=== PATIENT | female | born 1990 | race Caucasian/White ===

== ENCOUNTER 2018-03-21 08:14 | Observation (INO) | payer OTHER ==
[2018-03-21 08:47] VITALS: BMI 26.5
--- NOTE | 2018-03-21 08:55 | PDOC ---
History of Present Illness - General Chief Complaint: Psychiatric Stated Complaint: Depression Time Seen by Provider: 03/21/18 08:51 - History of Present Illness Initial Comments: 03/21/18 08:53 27 yo F with h/o depression who p/w suicidal ideations. Patient Lithuanian speaking with family members at bedside. Patient sisters states that patient called her yesterday evening on the phone endorsing SI, but did not have a plan at that time and requested that she pick her up from the bus stop yesterday (). Patient sister states that she has not slept in three days, and has had history of similar symptoms in past. Patient sister states that she has not been verbal since picking her up, has refused to sit down since picking her up, and denies that patient has attempted to harm herself. Patient denies assault, sexual assault. Patient family states that patient does not wish to be involved with patient at this time. Patient no longer on antidepressant medications x 2 month. Patient believes that she no longer needed medications. Patient denies STEWARD, palpitations, cough, wheezing, N/V, F,C, CP, SOB, urinary complaints, abdominal pain, vaginal bleeding, diarrhea, constipation, hematuria , BPR, lightheadedness, weakness, sensory changes. PMHx: as noted above ROS: as noted SHx: Denies Etoh, IVDA, tobacco use Allergies: NKDA Past History - Past Medical History Allergies/Adverse Reactions: Allergies Allergy/AdvReac Type Severity Reaction Status Date / Time No Known Allergies Allergy Verified 03/21/18 08:35 COPD: No Psychiatric Problems: Yes (depressions) - Immunization History Immunization Up to Date: Yes - Suicide/Smoking/Psychosocial Hx Smoking History: Never smoked Hx Alcohol Use: No Drug/Substance Use Hx: No Review of Systems - Review of Systems Comments:: 03/21/18 08:53 GENERAL/CONSTITUTIONAL: No fever or chills. No weakness. HEAD, EYES, EARS, NOSE AND THROAT: No change in vision. No ear pain or discharge. No sore throat. CARDIOVASCULAR: No chest pain or shortness of breath RESPIRATORY: No cough, wheezing, or hemoptysis. GASTROINTESTINAL: No nausea, vomiting, diarrhea or constipation. GENITOURINARY: No dysuria, frequency, or change in urination. MUSCULOSKELETAL: No joint or muscle swelling or pain. No neck or back pain. SKIN: No rash NEUROLOGIC: No headache, vertigo, loss of consciousness, or change in strength/ sensation. ENDOCRINE: No increased thirst. No abnormal weight change HEMATOLOGIC/LYMPHATIC: No anemia, easy bleeding, or history of blood clots. ALLERGIC/IMMUNOLOGIC: No hives or skin allergy. *Physical Exam - Vital Signs Last Vital Signs Temp Pulse Resp BP Pulse Ox 97.9 F 82 18 117/65 98 03/21/18 08:35 03/21/18 08:35 03/21/18 08:35 03/21/18 08:35 03/21/18 08:35 - Physical Exam Comments: 03/21/18 08:54 GENERAL: Awake, alert, and fully oriented, in no acute distress HEAD: No signs of trauma, normocephalic, atraumatic EYES: PERRLA, EOMI, sclera anicteric, conjunctiva clear ENT: Auricles normal inspection, hearing grossly normal, nares patent, oropharynx clear without exudates. Moist mucosa NECK: Normal ROM, supple, no lymphadenopathy, JVD, or masses LUNGS: No distress, speaks full sentences, clear to auscultation bilaterally HEART: Regular rate and rhythm, normal S1 and S2, no murmurs, rubs or gallops, peripheral pulses normal and equal bilaterally. ABDOMEN: Soft, nontender, normoactive bowel sounds. No guarding, no rebound. No masses EXTREMITIES : Normal inspection, Normal range of motion, no edema. No clubbing or cyanosis. NEUROLOGICAL: Cranial nerves II through XII grossly intact. Normal speech, normal gait, no focal sensorimotor deficits PSYCH: Patient affect blunt, congruent with mood. Poor eye contact. Speech soft , well groomed, good hygeine. SKIN: Warm, Dry, normal turgor, no rashes or lesions noted Moderate Sedation - Procedure Monitoring Vital Signs: Procedure Monitoring Vital Signs Temperature 97.9 F 03/21/18 08:35 Pulse Rate 82 03/21/18 08:35 Respiratory Rate 18 03/21/18 08:35 Blood Pressure 117/65 03/21/18 08:35 O2 Sat by Pulse Oximetry (%) 98 03/21/18 08:35 ED Treatment Course - LABORATORY CBC & Chemistry Diagram: 03/21/18 09:45 03/21/18 09:45 Medical Decision Making - Medical Decision Making 03/21/18 09:51 27 yo F with h/o depression who p/w suicidal ideations. Vitals wnl, AF, A&Ox3. Patient affect blunt, congruent with mood. Poor eye contact. Speech soft. Patient with likely acute psychosis. Will attempt to medically clear and admit to [facility]. Ed Course: CBC,CMP, Etoh, APAP, Salicylate, EKG Patient endorsed to Dr. Durham by Dr. Rowland 03/21/18 11:11 CBC,CMP, TSH: Unremarkable BHCG: Neg APAP, Etoh, Salicylate: Neg 03/21/18 15:29 EKG: NSR with absent HAFSA, STD. Normal interval duration. Absent Q waves. Nml R wave progression. 03/21/18 15:29 Arranging for patient to be transferred to [facility] Patient pending bed at [facility]. Pending Social work consult Plan to admit for prolonged med/obs hold. Cannot d/c patient d/t current SI. Patient endorsed to Dr. Serrato. Admit med/obs. *DC/Admit/Observation/Transfer Diagnosis at time of Disposition: Acute psychosis, Suicidal ideation - Discharge Dispostion Decision to Admit order: Yes - Referrals - Patient Instructions Additional Instructions: Please return to the emergency department with any new or worsening symptoms or concerns. Please follow up with your primary care physician within 72 hours. - Post Discharge Activity
--- NOTE | 2018-03-21 09:19 | PDOC ---
Attending Attestation - Medical Decision Making 03/21/18 15:53 Call placed to [facility] ([facility]) @ 12:41 pm Patient documentation Faxed over and received at 3:46pm. As per transfer sales representative sales manager, documents have been forwarded to the physician who will go over them. we should receive a call back in several hours. Documentation prepared by Lety Dubon, acting as biomedical analytical scientist for Teetee Rowland MD. <Lety Dubon - Last Filed: 03/21/18 15:53> - Resident Resident Name: EdisonNareshLazaro - ED Attending Attestation I have performed the following: I have examined & evaluated the patient, The case was reviewed & discussed with the resident, I agree w/resident's findings & plan, Exceptions are as noted - HPI HPI: 03/21/18 09:18 27 yo F with h/o depression, here with suicidal ideation. pt providing very little history as is despondent, refusing to answer questions only in yes or no format, withdrawn and paranoid. sister and brother provide additional history states she has been in a relationship with an older gentlemen who is reportedly in a " cult" jehovas witness or some other amish, and they had an argument because she went to his anabaptism and outwardly said she disagreed with the amish. he told her she would have to be punished, and she is a bad person. pt denies physical violence, but refuses to answer when asked if she has been asked to perform acts she did not want to. per sister, pt has been standing for hours and hours, and hasn't slept in 3 days. sister recieved day prior from pt that she was feeling suicidal, and then she went to pick her up at a bus stop yesterday evening. since that time pt has been refusing to speak or sit down, wont eat. they speak regularily on the telephone, but she has not been able to see her prior to this because the wouldn't allow it. 03/21/18 09:41 - Physicial Exam PE: 03/21/18 09:57 awake, alert but poor eye contact. lungs clear bilaterally heart rrr nomrg abd soft ntnd. ext wwp no edema. no tenderness. psych flattened,and depressed affect. paranoid, poor eye contact. positive SI. quiet voice, answering only yes and no. - Medical Decision Making 03/21/18 10:07 27 yo F with h/o depression here with suicidal ideation, difficult domestic situation. pt with sxs of severe ptsd or psychosis. will undergoe medical clearance. [facility] requiring admission for psychosis, depression with suicidality. d/w dr decker, will come to ED for evaluation. 03/21/18 11:57 pt seen and evaluated by DR Decker, feels will benefit from inpatient treatment. 2PC was signed. working with social work to find a bed. 03/21/18 13:41 pt is medically clear for psychiatric admission. 03/21/18 18:07 all material faxed to [facility] for possible admission. no idea if beds or not. d/w [facility] no bed currently, told to call tomorrow. <Teetee Rowland - Last Filed: 03/21/18 18:09>
[2018-03-21 10:15] LABS: BASO % 0.3 % (0-2.0); EOS % 0.1 % (0-4.5); HEMATOCRIT 38.8 % (32.4-45.2); HEMOGLOBIN 13.5 GM/dL (10.7-15.3); LYMPH % 16.9 % (8-40); MCH 31.1 pg (25.7-33.7); MCHC 34.7 g/dl (32.0-36.0); MEAN CELL VOLUME 89.6 fl (80-96); MEAN PLT VOLUME 9.2 fl (7.5-11.1); MONO % 7.8 % (3.8-10.2); NEUT % 74.9 % (42.8-82.8); PLATELET COUNT 206 K/MM3 (134-434); RBC 4.33 M/mm3 (3.60-5.2); RDW 14.4 % (11.6-15.6); WHITE BLOOD COUNT 7.9 K/mm3 (4.0-10.0)
[2018-03-21 10:35] LABS: ALBUMIN 4.8 g/dl (3.4-5.0); ALK PHOS 68 U/L (45-117); ANION GAP 11 MMOL/L (8-16); BILIRUBIN,TOTAL 1.7 mg/dL (0.2-1); BLOOD UREA NITROGEN 18 mg/dL (7-18); CALCIUM 9.2 mg/dL (8.5-10.1); CHLORIDE 106 mmol/L (98-107); CO2 23 mmol/L (21-32); CREATININE 0.7 mg/dL (0.55-1.3); GLUCOSE,RANDOM 104 mg/dL (74-106); POTASSIUM 3.6 mmol/L (3.5-5.1); SGOT/AST 19 U/L (15-37); SGPT/ALT 14 U/L (13-61); SODIUM 141 mmol/L (136-145); TOT PROT 8.6 g/dl (6.4-8.2)
--- NOTE | 2018-03-21 11:31 | CON.PSY ---
Psychiatry Consult Chief Complaint: 27 year old female brought to Er by Sister for severe depression and catatonic sate.She quit her job and been standing for 3 days and displaying bizarre behaviour. history of depression and stop taking her meds. Very poor Historian. Symptoms: reports: Depressed Mood, Suicidality, Self destructive thoughts, Disorganized/Disruptive Thoughts - Previous Psychiatric Treatment Outpatient: Less than 6 mos ago Inpatient: None - Reason for Previous Treatment Reason for Previous Treatment: Major Depression, Psychotic Episode - Allergies Allergies: Allergies Allergy/AdvReac Type Severity Reaction Status Date / Time No Known Allergies Allergy Verified 03/21/18 08:35 - Current Living Status Usual Living Arrangement: Alone - Current Mental Status Evaluation Appearance: Disheveled Attitude: Suspicious - Affect Appropriateness: Not Appropriate - Mood Mood: Depressed - Speech/Language Expressive: Delayed - Psychomotor Activity Psychomotor Activity: Slowed - Thought Process Thought Process: Circumstantial - Thought Content Hallucinations: Absent Delusions: Absent - Self Perception Self Perception: Depersonalization - Cognition Attention: Diminished Orientation: Time Memory, Short Term: 2/3 Memory, Remote with Promptin/3 - Concentration Serial Sevens Intact: No Simple Calculations Intact: No - Abstraction Proverb Interpretation: Impaired Judgement: Moderately Impaired - Insight Insight: Impaired - Impulse Control Impulse Control: Moderately Impaired - Suicidal Ideation Suicidal Ideation: Yes (no plans) - Homicidal Ideation Homicidal Ideation: No Assessment/Plan 1) Patient needs In patient Psych admission for acute DEpression with psychotic features.
[2018-03-21] MEDS ORDERED: HALOPERIDOL LACTATE 5 MG/ML IM ONE (13:43)
[2018-03-21] MEDS ORDERED: HALOPERIDOL LACTATE 5 MG/ML ONE (14:02)
[2018-03-21 18:11] LABS: URINE APPEARANCE CLOUDY; URINE BILIRUBIN NEGATIVE (<2.0 mg/dL); URINE COLOR AMBER; URINE GLUCOSE (UA) 1+ (NEGATIVE); URINE KETONE 2+ (NEGATIVE); URINE LEUK ESTERASE TRACE (NEGATIVE); URINE NITRITE NEGATIVE (NEGATIVE); URINE PROTEIN 2+ (NEGATIVE); URINE UROBILINOGEN NEGATIVE mg/dL (0.2-1.0)
[2018-03-21 18:14] LABS: EPI CELLS FEW /HPF (FEW); URINE MUCUS MANY
[2018-03-21 18:29] LABS: COCAINE, UR NEGATIVE ng/ml (CUTOFF=300); METHADONE, UR NEGATIVE ng/ml (CUTOFF=300); OPIATES, URI NEGATIVE ng/ml (CUTOFF=300); PHENCYCLIDINE,URINE NEGATIVE ng/ml (CUTOFF=25); URINE AMPHETAMINES NEGATIVE ng/ml (CUTOFF=500); URINE BARBITURATES NEGATIVE ng/ml (CUTOFF=200); URINE BENZODIAZEPINES NEGATIVE ng/ml (CUTOFF=200)
--- NOTE | 2018-03-21 19:28 | HP ---
Admitting History and Physical - Primary Care Physician PCP: Zee Serrato - Admission History of Present Illness: 27 yo F with h/o depression, here with suicidal ideation. pt providing very little history as is despondent, refusing to answer questions only in yes or no format, withdrawn and paranoid. sister and brother provide additional history states she has been in a relationship with an older gentlemen who is reportedly in a " cult" jehovas witness or some other pentecostal, and they had an argument because she went to his jehovah's witness and outwardly said she disagreed with the pentecostal. he told her she would have to be punished, and she is a bad person. pt denies physical violence, but refuses to answer when asked if she has been asked to perform acts she did not want to. per sister, pt has been standing for hours and hours, and hasn't slept in 3 days. sister recieved day prior from pt that she was feeling suicidal, and then she went to pick her up at a bus stop yesterday evening. since that time pt has been refusing to speak or sit down, wont eat. they speak regularily on the telephone, but she has not been able to see her prior to this because the wouldn't allow it. HISTORY TAKEN FROM ER RECORDS - Smoking History Smoking history: Never smoked - Alcohol/Substance Use Hx Alcohol Use: No Home Medications - Allergies Allergies/Adverse Reactions: Allergies Allergy/AdvReac Type Severity Reaction Status Date / Time No Known Allergies Allergy Verified 03/21/18 08:35 Physical Examination Vital Signs: Vital Signs Temperature 97.9 F 03/21/18 08:35 Pulse Rate 79 03/21/18 18:49 Respiratory Rate 15 03/21/18 18:49 Blood Pressure 122/65 03/21/18 18:49 O2 Sat by Pulse Oximetry (%) 99 03/21/18 18:49 Constitutional: Yes: Anxious HENT: Yes: Atraumatic Neck: Yes: Supple Cardiovascular: Yes: Regular Rate and Rhythm Respiratory: Yes: CTA Bilaterally Gastrointestinal: Yes: Normal Bowel Sounds Extremities: Yes: WNL Edema: No Neurological: Yes: Alert, Oriented Labs: CBC, BMP 03/21/18 09:45 03/21/18 09:45 Problem List - Problems (1) Acute psychosis Code(s): F23 - BRIEF PSYCHOTIC DISORDER (2) Suicidal ideation Assessment/Plan: seen by psych carmelo to go to [facility] psych unit Code(s): R45.851 - SUICIDAL IDEATIONS Assessment/Plan Laboratory Tests 03/21/18 03/21/18 03/21/18 09:45 09:45 09:45 WBC 7.9 RBC 4.33 Hgb 13.5 Hct 38.8 MCV 89.6 MCH 31.1 MCHC 34.7 RDW 14.4 Plt Count 206 MPV 9.2 Absolute Neuts (auto) 5.9 Neutrophils % 74.9 Lymphocytes % 16.9 Monocytes % 7.8 Eosinophils % 0.1 Basophils % 0.3 Nucleated RBC % 0 Sodium 141 Potassium 3.6 Chloride 106 Carbon Dioxide 23 Anion Gap 11 BUN 18 Creatinine 0.7 Creat Clearance w eGFR > 60 Random Glucose 104 Calcium 9.2 Total Bilirubin 1.7 H AST 19 ALT 14 Alkaline Phosphatase 68 Total Protein 8.6 H Albumin 4.8 TSH Serum , Qual Negative Urine Color Urine Appearance Urine pH Ur Specific [place] Urine Protein Urine Glucose (UA) Urine Ketones Urine Blood Urine Nitrite Urine Bilirubin Urine Urobilinogen Ur Leukocyte Esterase Urine WBC (Auto) Urine RBC (Auto) Ur Epithelial Cells Urine Mucus Salicylates < 1.7 L Opiates Screen Methadone Screen Acetaminophen < 10 L Barbiturate Screen Phencyclidine Screen Ur Amphetamines Screen MDMA (Ecstasy) Screen Benzodiazepines Screen Cocaine Screen U Marijuana (THC) Screen Alcohol, Quantitative 03/21/18 03/21/18 03/21/18 10:09 18:00 18:00 WBC RBC Hgb Hct MCV MCH MCHC RDW Plt Count MPV Absolute Neuts (auto) Neutrophils % Lymphocytes % Monocytes % Eosinophils % Basophils % Nucleated RBC % Sodium Potassium Chloride Carbon Dioxide Anion Gap BUN Creatinine Creat Clearance w eGFR Random Glucose Calcium Total Bilirubin AST ALT Alkaline Phosphatase Total Protein Albumin TSH 2.33 Serum , Qual Urine Color Massiel Urine Appearance Cloudy Urine pH 5.0 Ur Specific [place] 1.038 H Urine Protein 2+ H Urine Glucose (UA) 1+ H Urine Ketones 2+ H Urine Blood Negative Urine Nitrite Negative Urine Bilirubin Negative Urine Urobilinogen Negative Ur Leukocyte Esterase Trace Urine WBC (Auto) 4 Urine RBC (Auto) 12 Ur Epithelial Cells Few Urine Mucus Many Salicylates Opiates Screen Negative Methadone Screen Negative Acetaminophen Barbiturate Screen Negative Phencyclidine Screen Negative Ur Amphetamines Screen Negative MDMA (Ecstasy) Screen Negative Benzodiazepines Screen Negative Cocaine Screen Negative U Marijuana (THC) Screen Negative Alcohol, Quantitative < 3.0 PER ER RESIDENT , PATIENT IS WAITING TO BE TRANSFERED TO [facility] SOCIAL WORK NEED TO FU TOMORROW
--- NOTE | 2018-03-22 16:49 | EKG ---
Test Reason : Blood Pressure : / mmHG Vent. Rate : 071 BPM Atrial Rate : 071 BPM P-R Int : 116 ms QRS Dur : 092 ms QT Int : 440 ms P-R-T Axes : 024 106 043 degrees QTc Int : 478 ms NORMAL SINUS RHYTHM RIGHTWARD AXIS INCOMPLETE RBBB BORDERLINE ECG NO PREVIOUS ECGS AVAILABLE Confirmed by MD MAYTE, MOISES ([id number]) on 03/22/2018 4:49:18 PM Referred By: Confirmed By:MOISES HU MD
--- NOTE | 2018-03-22 18:17 | PN ---
Progress Note, Physician History of Present Illness: patient stated she is feeling better awaiting to go to [facility] - Objective Vital Signs: Vital Signs Temperature 98.3 F 03/22/18 14:00 Pulse Rate 69 03/22/18 06:25 Respiratory Rate 20 03/22/18 14:00 Blood Pressure 118/64 03/22/18 14:00 O2 Sat by Pulse Oximetry (%) 97 03/22/18 11:28 Constitutional: Yes: Calm HENT: Yes: Atraumatic Neck: Yes: Supple Cardiovascular: Yes: Regular Rate and Rhythm Respiratory: Yes: CTA Bilaterally Gastrointestinal: Yes: Normal Bowel Sounds Extremities: Yes: WNL Edema: No Peripheral Pulses WNL: Yes Neurological: Yes: Alert, Oriented Labs: CBC, BMP 03/21/18 09:45 03/21/18 09:45 Problem List - Problems (1) Acute psychosis Code(s): F23 - BRIEF PSYCHOTIC DISORDER (2) Suicidal ideation Assessment/Plan: seen by psych wating to go to [facility] psych unit Code(s): R45.851 - SUICIDAL IDEATIONS
--- NOTE | 2018-03-23 18:12 | PN ---
Progress Note, Physician History of Present Illness: patient stated she is feeling better awaiting to go to [facility] - Objective Vital Signs: Vital Signs Temperature 98.1 F 03/23/18 14:00 Pulse Rate 67 03/23/18 14:00 Respiratory Rate 15 03/23/18 14:00 Blood Pressure 107/56 L 03/23/18 14:00 O2 Sat by Pulse Oximetry (%) 100 03/22/18 19:48 Constitutional: Yes: No Distress HENT: Yes: Atraumatic Neck: Yes: Supple Cardiovascular: Yes: Regular Rate and Rhythm Respiratory: Yes: CTA Bilaterally Gastrointestinal: Yes: Normal Bowel Sounds Extremities: Yes: WNL Edema: No Peripheral Pulses WNL: Yes Neurological: Yes: Alert, Oriented Labs: CBC, BMP 03/21/18 09:45 03/21/18 09:45 Problem List - Problems (1) Acute psychosis Code(s): F23 - BRIEF PSYCHOTIC DISORDER (2) Suicidal ideation Assessment/Plan: wating to go to [facility] psych unit need updated psych eval before tranfer to [facility] Code(s): R45.851 - SUICIDAL IDEATIONS
[2018-03-24 10:10] VITALS: TEMP 98.1
--- NOTE | 2018-03-24 12:22 | PN ---
Progress Note (short form) - Note Progress Note: Psych reevaluation. Patient seen today for reeval, has been waiting for In patient Hospitalization. MS: Alert, oriented name, sister has been sitting with her, Patient still on 1:1 > Still unable to engage in any meaningful conversation, appears very preoccupied and afraid. Reports thru family that she is afraid of her . Talks about him involved in some Yarsani things. patient still displaying Catatonic like behaviour, Poor insight and judgement at this time with poor impulse control. Rec: In patient admission still required for further evaluation.
--- NOTE | 2018-03-24 16:37 | DS ---
Physical Examination Vital Signs: Vital Signs Temperature 98.1 F 03/24/18 10:10 Pulse Rate 69 03/24/18 10:10 Respiratory Rate 16 03/24/18 10:10 Blood Pressure 105/61 03/24/18 10:10 O2 Sat by Pulse Oximetry (%) 99 03/24/18 10:10 Labs: CBC, BMP 03/21/18 09:45 03/21/18 09:45 Discharge Summary Reason For Visit: ACUTE PSYCHOSIS/SUICIDAL IDEATION Current Active Problems Acute psychosis (Acute) Suicidal ideation (Acute) - Instructions Diet, Activity, Other Instructions: Please return to the emergency department with any new or worsening symptoms or concerns. Please follow up with your primary care physician within 72 hours. - Home Medications Comprehensive Discharge Medication List: Ambulatory Orders NK [No Known Home Medication] 03/24/18
--- NOTE | 2018-03-24 16:38 | PN ---
Progress Note, Physician - Objective Vital Signs: Vital Signs Temperature 98.1 F 03/24/18 10:10 Pulse Rate 69 03/24/18 10:10 Respiratory Rate 16 03/24/18 10:10 Blood Pressure 105/61 03/24/18 10:10 O2 Sat by Pulse Oximetry (%) 99 03/24/18 10:10 Labs: CBC, BMP 03/21/18 09:45 03/21/18 09:45 Problem List - Problems (1) Acute psychosis Code(s): F23 - BRIEF PSYCHOTIC DISORDER (2) Suicidal ideation Code(s): R45.851 - SUICIDAL IDEATIONS
[2018-03-24 18:29] VITALS: BP 111/72; PULSE 85
== END 2018-03-24 19:30 | disposition short-term general hospital (02) ==
LOC: JER 08:14 → JERBED 18:18
PROVIDERS: ADMIT Internal Medicine; ATTEND Internal Medicine
PROC: 3E023GC Introduction of Other Therapeutic Substance into Muscle, Percutaneous Approach (ICD-10-PCS; principal; 2018-03-21)
DX: F23 Brief psychotic disorder (principal); R45.851 Suicidal ideations; F32.3 Major depressive disorder, single episode, severe with psychotic features
CPT/HCPCS: 36415; 80053; 80307; 81003; 81015; 84443; 84703; 85025; 93005; 93010; 96372; 99285-25; G0378